=== PATIENT | female | born 1995 | race Caucasian/White ===

== ENCOUNTER 2017-02-21 08:41 | Outpatient (CLI) | END 2017-02-21 08:42 | disposition home or self-care (01) | LOC: LAB 08:41 | PROVIDERS: ATTEND Nurse Practitioner Family | DX: Z02.0 Encounter for examination for admission to educational institution (principal) | CPT/HCPCS: 82542 ==

== ENCOUNTER 2017-08-05 15:24 | Outpatient (CLI) | END 2017-08-05 15:25 | disposition home or self-care (01) | LOC: CAR 15:24 | PROVIDERS: ATTEND Nurse Practitioner Family | DX: E66.3 Overweight (principal); F43.9 Reaction to severe stress, unspecified | CPT/HCPCS: 36415; 80053; 80061; 84443; 85025; 93005; 93010 ==